=== PATIENT | female | born 1980 | race Caucasian/White ===

== ENCOUNTER 2017-11-05 15:44 | Emergency (ER) | payer OTHER ==
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
[2017-11-05] MEDS ORDERED: IBUPROFEN 600 MG TABLET PO STA (20:19)
[2017-11-05] MEDS ORDERED: ACETAMINOPHEN 325 MG TABLET PO STA (20:19)
[2017-11-05] MEDS: METHOCARBAMOL 500 MG TABLET PO STA ×2 (20:28→21:20)
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
[2017-11-05 21:00] VITALS: BP 162/102
== END 2017-11-05 21:20 | disposition home or self-care (01) ==
LOC: ED 15:44
DX: S46.812A Strain of other muscles, fascia and tendons at shoulder and upper arm level, left arm, initial encounter (principal); V43.52XA Car driver injured in collision with other type car in traffic accident, initial encounter; Y92.488 Other paved roadways as the place of occurrence of the external cause
CPT/HCPCS: 73030; 99283; A9270

== ENCOUNTER 2018-08-02 08:58 | Emergency (ER) | payer OTHER ==
[2018-08-02 09:14] VITALS: BP 123/78
[2018-08-02] MEDS ORDERED: KETOROLAC 60 MG/2 ML VIAL IM STA (09:44)
--- NOTE | 2018-08-02 09:45 | ED Physician Documentation ---
History of Present Illness - Stated complaint Stated Complaint: R SHOULDER PAIN - Chief complaint Chief Complaint: Ext Problem - History obtained from History obtained from: Patient - History of Present Illness Timing: How many days ago (4) Pain level max: 7 Pain level now: 5 Improved by: rest Worsened by: movement - Additonal information Additional information: 38-year-old female with right shoulder pain for the past 4 days. Does not recall any injury, but did start working out about a month ago. She took Motrin yesterday and Tylenol today without relief. She is left-handed. No numbness or tingling. Review of Systems Constitutional: denies: Fever GI: denies: Vomiting, Diarrhea Skin: denies: Rash Musculoskeletal: denies: Neck pain, Back pain Neurologic: denies: Focal weakness, Numbness, Headache PD PAST MEDICAL HISTORY - Past Medical History Past Medical History: Yes Musculoskeletal: None Other Past Medical History: celiac disease. 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 - Present Medications Home Medications: Ambulatory Orders Medication Instructions Recorded Confirmed Cyclobenzaprine [Flexeril] 10 mg PO TID PRN #20 tablet 08/02/18 Krill/[place]-3/Dha/Epa/Lipids 08/02/18 [Krill Oil 350 mg Softgel] Lisinopril 20 mg PO DAILY 08/02/18 08/02/18 Meloxicam [Mobic] 15 mg PO DAILY PRN #20 tablet 08/02/18 Multivitamin [Multiple Vitamins] 1 each PO 08/02/18 - Allergies Allergies/Adverse Reactions: Allergies Allergy/AdvReac Type Severity Reaction Status Date / Time Penicillins Allergy Unknown Verified 08/02/18 09:07 gluten AdvReac Unknown Verified 08/02/18 09:07 - Social History Does the pt smoke?: No Smoking Status: Current every day smoker Does the pt drink ETOH?: No Does the pt have substance abuse?: No - Immunizations Immunizations are current?: Yes - POLST Patient has POLST: No PD ED PE NORMAL - Vitals Vital signs reviewed: Yes - General General: Alert and oriented X 3, No acute distress - HEENT HEENT: Moist mucous membranes - Neck Neck: Supple, no meningeal sign - Cardiac Cardiac: RRR, Strong equal pulses - Respiratory Respiratory: No respiratory distress, Clear bilaterally - Derm Derm: Warm and dry - Extremities Extremities: Other (Right upper extremity - Mild pain with passive range of motion of the right shoulder. There does seem to be increased pain with internal and external rotation. Also increased pain with active range of motion. No gross deformity. Neurovascular intact including the axillary nerve.) - Neuro Neuro: Alert and oriented X 3 Results - Vitals Vitals: Vital Signs - 24 hr 08/02/18 09:03 Temperature 36.8 C Heart Rate 60 Respiratory 14 Rate Blood Pressure 123/78 O2 Saturation 99 Oxygen O2 Source Room air - Rads (name of study) R shoulder xray Radiology: Prelim report reviewed, EMP read contemporaneously, See rad report (Normal shoulder radiography. ) PD MEDICAL DECISION MAKING - ED course Complexity details: reviewed results, re-evaluated patient, considered differential, d/w patient ED course: 38-year-old female presents to the emergency department with right shoulder pain. Unclear etiology. Possible related to carrying her child? She is left- handed. No acute findings on x-ray. Will place on anti-inflammatories as well as muscle relaxants for home. Declines a sling at this time. Patient counseled regarding signs and symptoms for which I believe and urgent re-evaluation would be necessary. Patient with good understanding of and agreement to plan and is comfortable going home at this time This document was made in part using voice recognition software. While efforts are made to proofread this document, sound alike and grammatical errors may occur. Departure - Departure Disposition: 01 Home, Self Care Clinical Impression: Right shoulder strain Qualifiers: Encounter type: initial encounter Qualified Code(s): S46.911A - Strain of unspecified muscle, fascia and tendon at shoulder and upper arm level, right arm, initial encounter Condition: Good Instructions: ED Sprain Shoulder Follow-Up: your,doctor in 1 week [Other] Prescriptions: Cyclobenzaprine [Flexeril] 10 mg PO TID PRN #20 tablet PRN Reason: Spasms Meloxicam [Mobic] 15 mg PO DAILY PRN #20 tablet PRN Reason: pain Comments: Use the medication as prescribed. Return if you worsen. This should improve over the next few days. Do not drive or operate heavy machinery while taking the Flexeril. Discharge Date/Time: 08/02/18 11:31
--- NOTE | 2018-08-02 11:20 | XRAY Report ---
Reason: R shoulder pain x 4 days Procedure Date: 08/02/2018 Accession Number: [id number] / [id number] Procedure: XR - Shoulder 3 View RT CPT Code: FULL RESULT: EXAM: RIGHT SHOULDER RADIOGRAPHY EXAM DATE: 08/02/2018 10:26 AM. CLINICAL HISTORY: R shoulder pain x 4 days. COMPARISON: None. TECHNIQUE: 3 views. FINDINGS: Bones: Normal. No fracture or bone lesion. Joints: The glenohumeral and acromioclavicular joints are normal. Soft tissues: The visualized hemithorax is unremarkable. No soft tissue swelling. IMPRESSION: Normal shoulder radiography. RADIA
== END 2018-08-02 11:31 | disposition home or self-care (01) ==
LOC: ED 08:58
DX: S46.911A Strain of unspecified muscle, fascia and tendon at shoulder and upper arm level, right arm, initial encounter (principal); X50.9XXA Other and unspecified overexertion or strenuous movements or postures, initial encounter; Y93.A9 Activity, other involving cardiorespiratory exercise; F17.200 Nicotine dependence, unspecified, uncomplicated
CPT/HCPCS: 96372; 99283

== ENCOUNTER 2018-08-25 18:56 | Emergency (ER) | payer OTHER ==
[2018-08-25] MEDS ORDERED: SODIUM CHLORIDE 0.9% 1,000 ML IV ONE (19:09)
[2018-08-25] MEDS ORDERED: LISINOPRIL 5 MG TABLET PO STA (19:09)
--- NOTE | 2018-08-25 19:10 | ED Physician Documentation ---
PD HPI FOCAL NEURO - Stated complaint Stated Complaint: DIZZY - Chief complaint Chief Complaint: Neuro - History obtained from History obtained from: Patient - History of Present Illness Timing - onset: Today (38-year-old woman with history of hypertension presents with dizziness that she describes as a combination of lightheadedness and spinning that started this morning. It is sometimes worse when she turns her head to the right. She is concerned because her blood pressure was high today and she takes her lisinopril, 20 mg in the morning and she is not sure if she took that or an extra dose of meloxicam which she has had for ongoing right sided neck pain. There is no headache, but she does have chronic neck and right-sided shoulder pain. That is not new. There is no visual deficit, no d iplopia. 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 Home Medications: Ambulatory Orders Medication Instructions Recorded Confirmed Cyclobenzaprine [Flexeril] 10 mg PO TID PRN #20 tablet 08/02/18 Krill/[place]-3/Dha/Epa/Lipids 08/02/18 [Krill Oil 350 mg Softgel] Meloxicam [Mobic] 15 mg PO DAILY PRN #20 tablet 08/02/18 Multivitamin [Multiple Vitamins] 1 each PO 08/02/18 RX: Lisinopril 20 mg PO DAILY 08/02/18 08/02/18 RX: Ciprofloxacin [Cipro] 250 mg PO Q12H #10 tablet 08/25/18 - Allergies Allergies/Adverse Reactions: Allergies Allergy/AdvReac Type Severity Reaction Status Date / Time Penicillins Allergy Unknown Verified 08/02/18 09:07 gluten AdvReac Unknown Verified 08/02/18 09:07 - Social History Does the pt smoke?: No Smoking Status: Current every day smoker Does the pt drink ETOH?: No Does the pt have substance abuse?: No - Immunizations Immunizations are current?: Yes - POLST Patient has POLST: No PD ED PE NORMAL - Vitals Vital signs reviewed: Yes - General General: Alert and oriented X 3, No acute distress - HEENT HEENT: PERRL, EOMI, Other (No nystagmus,) - Neck Neck: Supple, no meningeal sign, No bony TTP - Cardiac Cardiac: RRR, No murmur - Respiratory Respiratory: No respiratory distress, Clear bilaterally - Abdomen Abdomen: Non tender - Neuro Neuro: Alert and oriented X 3, 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, Other (Normal [id number] and [id number] testing) Eye Opening: Spontaneous Motor: Obeys Commands Verbal: Oriented GCS Score: 15 - Psych Psych: Normal mood, Normal affect NIHSS - Time Time: 17:30 - Level of Consciousness Level of consciousness: (0) Alert, Keenly responsive LOC Questions: (0) Answers both Q's correct LOC Commands: (0) Performs both correctly - Gaze Best Gaze: (0) Normal - Visual Visual: (0) No loss - Facial Palsy Facial Palsy: (0) Normal, symmetrical movement - Motor Arms (both separate) Motor Arm (right): (0) No drift Motor Arm (left): (0) No drift - Motor Legs (both separate) Motor Leg (right): (0) No drift Motor Leg (left): (0) No drift - Limb Ataxia Limb Ataxia: (0) Absent - Sensory Sensory: (0) Normal - Best Language Best Language: (0) No aphasia - Dysarthria Dysarthria: (0) Normal - Extinction and Inattention (formally neg Extinction and inattention: (0) No abnormality - Total Score/Results Total Score/Result: 0 Results - Vitals Vitals: Vital Signs - 24 hr 08/25/18 08/25/18 08/25/18 19:00 19:31 20:50 Temperature 36.0 C L 36.6 C Heart Rate 95 59 L 55 L Respiratory 18 16 16 Rate Blood Pressure 137/99 H 136/89 H 117/85 H O2 Saturation 98 99 100 Oxygen O2 Source Room air - Labs Labs: Laboratory Tests 08/25/18 08/25/18 08/25/18 19:15 19:15 20:11 WBC 9.4 RBC 4.48 Hgb 13.7 Hct 40.9 MCV 91.4 MCH 30.7 MCHC 33.6 RDW 13.0 Plt Count 336 MPV 8.1 Neut # (Auto) 5.9 Lymph # (Auto) 2.3 [place] # (Auto) 0.7 Eos # (Auto) 0.5 Baso # (Auto) 0.1 Absolute Nucleated RBC 0.01 Nucleated RBC % 0.1 Sodium 137 Potassium 3.6 Chloride 102 Carbon Dioxide 24 Anion Gap 11.0 BUN 13 Creatinine 1.0 Estimated GFR (MDRD) 63 L Glucose 104 H Calcium 9.1 Total Bilirubin 0.3 AST 17 ALT 13 Alkaline Phosphatase 54 Total Protein 7.3 Albumin 4.4 Globulin 2.9 Albumin/Globulin Ratio 1.5 Lipase 45 Urine Color YELLOW Urine Clarity CLEAR Urine pH 6.0 Ur Specific [place] <=1.005 Urine Protein NEGATIVE Urine Glucose (UA) NEGATIVE Urine Ketones NEGATIVE Urine Occult Blood NEGATIVE Urine Nitrite POSITIVE H Urine Bilirubin NEGATIVE Urine Urobilinogen 0.2 (NORMAL) Ur Leukocyte Esterase NEGATIVE Urine RBC None Seen Urine WBC 0-3 Ur Squamous Epith Cells MOD Squamous H Urine Bacteria Many H Ur Microscopic Review INDICATED Urine Culture Comments NOT INDICATED Urine HCG, Qual NEGATIVE PD MEDICAL DECISION MAKING - ED course ED course: 38-year-old woman presents with dizziness that seems like a combination of vertigo and lightheadedness. She felt somewhat better after IV fluids, she was most worried about her blood pressure which was about 140/90 on arrival. She was not sure whether she took her lisinopril or not this morning and she was gi maldonado half her normal dose with resolution of her blood pressure to normal levels. Her work-up was otherwise negative with normal neurologic examination and negative blood work but she does have evidence of UTI with positive nitrite. She says she frequently has UTIs and does not really get symptomatic with them because of how frequently she has them and this is treated with Cipro pending culture. She cannot take sulfa because she is on lisinopril. Departure - Departure Disposition: 01 Home, Self Care Clinical Impression: Dizziness, UTI (urinary tract infection) Condition: Good Record reviewed to determine appropriate education?: Yes Instructions: ED Dizziness UKO, ED UTI Cystitis Female Prescriptions: RX: Ciprofloxacin [Cipro] 250 mg PO Q12H #10 tablet Comments: We will culture your urine, the results should be done in 48-72 hours. If an antibiotic change is necessary we will call you. Return if worse in the meantime, especially if you develop increasing flank pain, fevers, or cannot keep down the medication. Call your doctor to arrange a follow-up appointment, make the next available appointment. In the interim, return anytime if worse or if new symptoms develop. Discharge Date/Time: 08/25/18 20:58
[2018-08-25 19:23] LABS: BASOPHILS # (AUTO) 0.1 10^3/uL (0.0-0.1); BASOPHILS % (AUTO) 1.3 %; EOSINOPHILS # (AUTO) 0.5 10^3/uL (0.0-0.7); HGB - HEMOGLOBIN 13.7 g/dL (12.0-16.0); LYMPHOCYTES # (AUTO) 2.3 10^3/uL (1.5-3.5); MEAN CORPUSCULAR HEMOGLOBIN 30.7 pg (27.0-31.0); MEAN CORPUSCULAR HGB CONC 33.6 g/dL (32.0-36.0); MEAN CORPUSCULAR VOLUME 91.4 fL (81.0-99.0); MEAN PLATELET VOLUME 8.1 fL (7.9-10.8); MONOCYTES # (AUTO) 0.7 10^3/uL (0.0-1.0); MONOCYTES % (AUTO) 7.1 %; NEUTROPHILS # (AUTO) 5.9 10^3/uL (1.5-6.6); NEUTROPHILS % (AUTO) 62.6 %; PLT - PLATELET COUNT 336 10^3/uL (130-450); RED BLOOD COUNT 4.48 10^6/uL (4.20-5.40); WHITE BLOOD COUNT 9.4 x10^3/uL (4.8-10.8)
[2018-08-25 19:32] LABS: ALBUMIN 4.4 g/dL (3.2-5.5); ALBUMIN/GLOBULIN RATIO 1.5 (1.0-2.2); BILIRUBIN,TOTAL 0.3 mg/dL (0.2-1.0); CALCIUM 9.1 mg/dL (8.5-10.3); TOTAL PROTEIN 7.3 g/dL (6.7-8.2)
[2018-08-25 20:28] LABS: BILIRUBIN,URINE NEGATIVE (NEGATIVE); GLUCOSE, URINE (UA) NEGATIVE (NEGATIVE); KETONES,URINE (UA) NEGATIVE (NEGATIVE); LEUKOCYTE ESTERASE, URINE NEGATIVE (NEGATIVE); NITRITE,URINE POSITIVE (NEGATIVE); OCCULT BLOOD,URINE NEGATIVE (NEGATIVE); PROTEIN,URINE NEGATIVE (NEGATIVE); UROBILINOGEN,URINE 0.2 (NORMAL) E.U./dL (NORMAL)
[2018-08-25 20:31] LABS: CLARITY,URINE CLEAR (CLEAR); HCG UR QUAL NEGATIVE
[2018-08-25] MEDS ORDERED: CIPROFLOXACIN 250 MG TABLET PO STA (20:42)
[2018-08-25 20:45] LABS: RBC,URINE None Seen /HPF (0-5)
[2018-08-25 20:46] LABS: BACTERIA,URINE Many /HPF (None Seen); SQUAMOUS EPITHELIAL CELL,UR MOD Squamous (<= Few)
[2018-08-25 20:51] VITALS: BP 117/85
== END 2018-08-25 20:58 | disposition home or self-care (01) ==
LOC: ED 18:56
DX: R42 Dizziness and giddiness (principal); N39.0 Urinary tract infection, site not specified; F17.200 Nicotine dependence, unspecified, uncomplicated
CPT/HCPCS: 36415; 80053; 81001; 81025; 83690; 85025; 87086; 96360; 99283; A9270; 81003; 87181

== ENCOUNTER 2018-08-28 09:00 | Emergency (ER) | payer OTHER ==
--- NOTE | 2018-08-28 10:33 | ED Physician Documentation ---
PD HPI OPHTHO - Stated complaint Stated Complaint: RT EYE IRRITATION - Chief complaint Chief Complaint: Heent - History obtained from History obtained from: Patient - History of Present Illness Timing - onset: Today Timing - duration: Hours (awoke this mornign with feeling of right eyelid drooping and vision blurry. Not having symptoms of whole face.) Timing - details: Abrupt onset, Still present Location: Right Associated symptoms: Decreased vision. No: Redness, Double vision, Loss of vision Contributing factors: No: Recent URI Similar symptoms before: Has not had sx before Recently seen: Emergency Dept (had feeling of dizziness few days ago, worse with head movement. Some right sided headache. No focal weakness nor numbness.) Review of Systems Constitutional: denies: Fever, Chills Eyes: reports: Decreased vision (feeling blurred right eye at times). denies: Loss of vision Ears: reports: Other (intermittent dizziness with head movement.). denies: Loss of hearing, Ear pain Nose: reports: Sinus pressure / pain. 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 - Present Medications Home Medications: Ambulatory Orders Medication Instructions Recorded Confirmed Krill/[place]-3/Dha/Epa/Lipids 08/02/18 [Krill Oil 350 mg Softgel] Lisinopril 20 mg PO DAILY 08/02/18 08/02/18 Meloxicam [Mobic] 15 mg PO DAILY PRN #20 tablet 08/02/18 Multivitamin [Multiple Vitamins] 1 each PO 08/02/18 Ciprofloxacin [Cipro] 250 mg PO Q12H #10 tablet 08/25/18 Cetirizine [ZyrTEC] 10 mg PO DAILY #15 tablet 08/28/18 Dexamethasone [Decadron] 4 mg PO DAILY #5 tablet 08/28/18 - Allergies Allergies/Adverse Reactions: Allergies Allergy/AdvReac Type Severity Reaction Status Date / Time Penicillins Allergy Unknown Verified 08/28/18 09:11 gluten AdvReac Unknown Verified 08/28/18 09:11 - Social History Does the pt smoke?: No Smoking Status: Never smoker Does the pt drink ETOH?: No Does the pt have substance abuse?: No - Immunizations Immunizations are current?: Yes - POLST Patient has POLST: No PD ED PE NORMAL - Vitals Vital signs reviewed: Yes - General General: Alert and oriented X 3, No acute distress (not in pain, but is tearful/anxious about not feeling well. ), Well developed/nourished - HEENT HEENT: PERRL (mild puffiness noted right upper lid. No ptosis per se. 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, No motor deficit, No sensory deficit, Normal speech Results - Vitals Vitals: Vital Signs - 24 hr 08/28/18 08/28/18 09:09 13:38 Temperature 37.1 C 36.7 C Heart Rate 70 60 Respiratory 20 18 Rate Blood Pressure 127/93 H 132/92 H O2 Saturation 97 98 Oxygen O2 Source Room air - Rads (name of study) head CT Radiology: Prelim report reviewed (normal), See rad report PD MEDICAL DECISION MAKING - ED course Complexity details: reviewed results, considered differential (given dizziness recently, and now feeling of right eyelid droopy (though it looks like some mild swelling of eyelid without redness and not drooping per se), decided on CT with discussion with patient. Has some sinus pressure feeling, so dizzy and some periorbital swelling (lid) may related to sinus congestion. ), d/w patient Departure - Departure Disposition: 01 Home, Self Care Clinical Impression: Sinus pressure Swelling of eyelid Qualifiers: Laterality: right Qualified Code(s): H02.843 - Edema of right eye, unspecified eyelid Condition: Stable Record reviewed to determine appropriate education?: Yes Instructions: ED Sinusitis No Abx Follow-Up: FATOU KIMBALL [Primary Care Provider] - Prescriptions: Cetirizine [ZyrTEC] 10 mg PO DAILY #15 tablet Dexamethasone [Decadron] 4 mg PO DAILY #5 tablet Comments: Your CT scan of the head appears normal. No signs of tumor swelling or other acute problem. I think your eyelid swelling as well as the dizziness you have been having likely relate to some inflammation around the sinus. I have you take cetirizine antihistamine daily for the next week or 2 and also Decadron steroid for inflammation daily for the next 5 days. It does not seem like an infection per se so I do not think antibiotics will help. Recheck if not improved over the next few days. Discharge Date/Time: 08/28/18 13:39
[2018-08-28] MEDS ORDERED: CHERRY SYRUP 10 ML UDC PO ONE (11:31)
[2018-08-28] MEDS ORDERED: DEXAMETHASONE 10 MG/ML VIAL PO STA (11:31)
--- NOTE | 2018-08-28 12:25 | CT Report ---
Reason: right headache, feels eyelid is droopy Procedure Date: 08/28/2018 Accession Number: [id number] / [id number] Procedure: CT - HEAD WO CPT Code: FULL RESULT: EXAM: CT HEAD EXAM DATE: 08/28/2018 12:12 PM. CLINICAL HISTORY: Right headache, feels eyelid is droopy. COMPARISON: None. TECHNIQUE: Multiaxial CT images were obtained from the foramen magnum to the vertex. Reformats: Sagittal and coronal. IV contrast: None. In accordance with CT protocol optimization, one or more of the following dose reduction techniques were utilized for this exam: automated exposure control, adjustment of mA and/or KV based on patient size, or use of iterative reconstructive technique. FINDINGS: Parenchyma: No intraparenchymal hemorrhage. No evidence of mass, midline shift, or CT findings of infarction. Dobbins-white differentiation is distinct. Extraaxial Spaces: Normal for age. No subdural or epidural collections identified. Ventricles: Normal in size and position. Sinuses and Orbits: Imaged paranasal sinuses, orbits, and mastoids show no significant abnormality. Bones: No evidence of fracture or calvarial defect. Other: None. IMPRESSION: Normal head CT. RADIA
[2018-08-28 13:38] VITALS: BP 132/92
== END 2018-08-28 13:39 | disposition home or self-care (01) ==
LOC: ED 09:00
DX: J34.89 Other specified disorders of nose and nasal sinuses (principal); H02.843 Edema of right eye, unspecified eyelid; I10 Essential (primary) hypertension
CPT/HCPCS: 70450; 99283

== ENCOUNTER 2019-01-27 09:15 | Outpatient (CLI) | payer OTHER | END 2019-01-27 09:16 | disposition home or self-care (01) | LOC: LAB 09:15 | PROVIDERS: ATTEND Plastic Surgery | DX: N62 Hypertrophy of breast (principal); M54.6 Pain in thoracic spine; G89.29 Other chronic pain | CPT/HCPCS: 80323; 81599 ==

== ENCOUNTER 2019-02-05 12:34 | Emergency (ER) | payer OTHER ==
[2019-02-05] MEDS ORDERED: KETOROLAC 60 MG/2 ML VIAL IM STA (13:10)
[2019-02-05] MEDS ORDERED: HYDROmorphone 1 MG/ML CARPUJECT IM STA (13:10)
--- NOTE | 2019-02-05 13:11 | ED Physician Documentation ---
PD HPI BACK PAIN - Stated complaint Stated Complaint: BACK PX - Chief complaint Chief Complaint: Back Pain - History obtained from History obtained from: Patient (She was doing some light work around the house a few hours ago. She twisted and felt sudden severe back pain that is much worse with twisting or bending. She has no incontinence, saddle anesthesia, fevers, weakness, numbness, or tingling in the legs. 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 - Present Medications Home Medications: Ambulatory Orders Medication Instructions Recorded Confirmed Lisinopril 20 mg PO DAILY 08/02/18 08/02/18 Cyclobenzaprine [Flexeril] 10 mg PO TID PRN #20 tablet 02/05/19 Hydrocodone/Acetaminophen 1 - 2 each PO Q6H PRN #14 tablet 02/05/19 [Hydrocodon-Acetaminophen 5-325] Ibuprofen [Motrin] 800 mg PO Q8H PRN #30 tablet 02/05/19 Ondansetron Odt [Zofran] 4 mg TL Q6H PRN #10 tablet 02/05/19 - Allergies Allergies/Adverse Reactions: Allergies Allergy/AdvReac Type Severity Reaction Status Date / Time Penicillins Allergy Unknown Verified 02/05/19 12:39 gluten AdvReac Unknown Verified 02/05/19 12:39 - Social History Does the pt smoke?: No Smoking Status: Never smoker Does the pt drink ETOH?: No Does the pt have substance abuse?: No - Immunizations Immunizations are current?: Yes - POLST Patient has POLST: No PD ED PE NORMAL - Vitals Vital signs reviewed: Yes - General General: Alert and oriented X 3, No acute distress - Cardiac Cardiac: RRR, No murmur - Respiratory Respiratory: No respiratory distress, Clear bilaterally - Abdomen Abdomen: Soft, Non tender - Back Back: Other (There is no midline spinal tenderness. She does have tenderness of the low parathoracic muscles on either side. She is comfortable at rest but winces with motion. The patient has equal and normal Achilles and patellar reflexes bilaterally. Normal sensation in all areas of the legs. Patient denies saddle anesthesia. Normal strength in flexion-extension at the ankles, knees, and flexion of the hips.) - Extremities Extremities: No edema, No calf tenderness / cord - Neuro Neuro: Alert and oriented X 3, Normal speech Results - Vitals Vitals: Vital Signs - 24 hr 02/05/19 12:39 Temperature 36.7 C Heart Rate 66 Respiratory 16 Rate Blood Pressure 139/72 H O2 Saturation 100 Oxygen O2 Source Room air PD MEDICAL DECISION MAKING - ED course ED course: This patient has seemingly uncomplicated musculoskeletal back pain. The patient has no "red flags." Specifically denies IV drug use, fevers, incontinence, saddle anesthesia. Spinal epidural abscess was considered, given that the patient has no fever, is not diabetic, has no spinal tenderness, does not use IV drugs, and has no bilateral neurologic symptoms, the diagnosis of spinal epidural abscess is considered exceedingly unlikely. It does seem like an obvious spasm and she is administered IM Toradol and Dilaudid. This was followed by 1mg IM Ativan with return of functionality. Departure - Departure Disposition: 01 Home, Self Care Clinical Impression: Back spasm Condition: Good Record reviewed to determine appropriate education?: Yes Instructions: ED Spasm Back No Trauma Prescriptions: Cyclobenzaprine [Flexeril] 10 mg PO TID PRN #20 tablet PRN Reason: Spasms Hydrocodone/Acetaminophen [Hydrocodon-Acetaminophen 5-325] 1 - 2 each PO Q6H PRN #14 tablet PRN Reason: pain Ibuprofen [Motrin] 800 mg PO Q8H PRN #30 tablet PRN Reason: PAIN &/OR FEVER Ondansetron Odt [Zofran] 4 mg TL Q6H PRN #10 tablet PRN Reason: Nausea / Vomiting Comments: Call your doctor to arrange a follow-up appointment, make the next available appointment. In the interim, return anytime if worse or if new symptoms develop. Do not drink or drive while taking narcotic pain medication. Note that many narcotic pain relievers also contain Tylenol/acetaminophen. Please ensure that your total dose of acetaminophen from all sources does not exceed 3 g (3000 mg) per day. You may get constipated while on this medication. Take a stool softener such as Colace twice a day while you are on it. Also add an [id number] laxative such as senna or MiraLAX on any day that you do not have a bowel movement. If you received a narcotic pain medication or sedative while in the emergency department, do not drive for the next 24 hours.
[2019-02-05] MEDS ORDERED: ONDANSETRON ODT 4 MG TABLET TL STA (13:43)
[2019-02-05] MEDS ORDERED: LORazepam 2 MG/ML VIAL IM STA (13:43)
[2019-02-05 14:53] VITALS: BP 106/64
== END 2019-02-05 14:43 | disposition home or self-care (01) ==
LOC: ED 12:34
DX: M62.830 Muscle spasm of back (principal); I10 Essential (primary) hypertension
CPT/HCPCS: 96372; 99284; J1170; J2060; Q0162

== ENCOUNTER 2020-01-20 09:47 | Outpatient (CLI) | payer OTHER ==
--- NOTE | 2020-01-20 14:03 | MRI Report ---
PROCEDURE: Knee RT W/O INDICATIONS: RT KNEE PAIN TECHNIQUE: Noncontrast sagittal PD fast spin echo and T2 fast spin echo with fat saturation, sagittal 3-D gradie nt sequence with fat saturation; coronal T1 spin echo and PD fast spin echo with fat saturation, and axial PD fast spin echo with fat saturation through the knee. COMPARISON: None. FINDINGS: Image quality: Excellent. Menisci: The medial and lateral menisci demonstrate normal morphology and internal signal. The meni scal root ligaments appear intact. Cruciate ligaments: The anterior and posterior cruciate ligaments appear intact. Medial structures: The medial collateral ligament appears intact. Visualized portions of the pes a nserinus tendons appear normal. No abnormal bursal fluid. Lateral structures: The lateral collateral ligament, long and short heads of the biceps femoris tend on appear intact. The popliteus tendon appears normal; the popliteofibular ligament appears intact. The posterosuperior and anteroinferior popliteomeniscal fascicles appear intact. The arcuate and fa bellofibular ligaments appear intact, around the lateral inferior geniculate artery. Iliotibial band appears normal. Anterior structures: The quadriceps and patellar tendons appear intact. Mild superolateral patellar subluxation. No femoral trochlear dysplasia or ventral trochlear prominence. Mild edema in the supero lateral aspect of the infrapatellar fat pad. Bones and cartilage: No bone marrow contusions or fractures. Red marrow reconversion within the dist al femur. Mild articular cartilage loss diffusely overlies the weightbearing aspects of the medial fe moral condyle and medial tibial plateau. Joint space: There is physiologic knee joint fluid. Small Pedersen?s cyst. Normal appearing synovial p licae are incidentally noted. IMPRESSION: 1. No internal derangement. 2. Findings consistent with mild/early lateral patellofemoral friction syndrome in the appropriate cl inical setting. 3. Red marrow reconversion, which may indicate tobacco use. Clinical correlation recommended. Reviewed by: Javier Bhatti MD on 01/20/2020 2:01 PM PDT Approved by: Javier Bhatti MD on 01/20/2020 2:01 PM PDT Station ID: [id number]
== END 2020-01-20 09:48 | disposition home or self-care (01) ==
LOC: DI 09:47
PROVIDERS: ATTEND Nurse Practitioner Family
DX: M25.561 Pain in right knee (principal)

== ENCOUNTER 2020-11-19 12:34 | Outpatient (CLI) | payer OTHER ==
--- NOTE | 2020-12-03 09:18 | XRAY Report ---
PROCEDURE: SI Joints INDICATIONS: CHRONIC LOW BACK PAIN LATERALITY TECHNIQUE: 3 views of the sacroiliac joints were acquired. COMPARISON: None FINDINGS: Bones: No bony erosions or ankylosis. No suspicious bony lesions. No fractures. Soft tissues: Overlying bowel gas pattern is normal. No suspicious soft tissue densities. IMPRESSION: Normal appearance of the SI joints bilaterally. Reviewed by: AURA Arreola on 11/23/2020 9:01 AM PDT Approved by: Eduardo Lopez MD on 11/23/2020 9:01 AM PDT Station ID: [id number]
== END 2020-11-19 12:35 | disposition home or self-care (01) ==
LOC: DI 12:34
DX: L40.50 Arthropathic psoriasis, unspecified (principal); M54.5 Low back pain; G89.29 Other chronic pain

== ENCOUNTER 2022-07-08 09:56 | Emergency (ER) | payer OTHER ==
[2022-07-08 10:12] VITALS: BP 154/89
--- NOTE | 2022-07-08 11:12 | ED Physician Documentation ---
PD HPI OPHTHO - Stated complaint Stated Complaint: EYE PX/REDDNESS.SWELLING - Chief complaint Chief Complaint: Heent - History obtained from History obtained from: Patient - Additional information Additional information: Patient is a 42-year-old female with a history of arthritis, on Cosentyx, presenting for evaluation of redness and discharge to her right eye that she has noticed for 1 day. She has not had mild swelling to the right upper eyelid for the past 1 week and was diagnosed with a stye yesterday at her PCPs office. She was recommended to use warm compresses. This morning she woke up with green discharge and Irritation to the eye.She reports having mild blurriness to her vision. She does use contacts but has not been using contacts in the past 1 week. 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 - Present Medications Home Medications: Ambulatory Orders Medication Instructions Recorded Confirmed lisinopriL [Lisinopril] 20 mg PO DAILY 08/02/18 08/02/18 Cyclobenzaprine [Flexeril] 10 mg PO TID PRN #20 tablet 02/05/19 Hydrocodone/Acetaminophen 1 - 2 each PO Q6H PRN #14 tablet 02/05/19 [Hydrocodon-Acetaminophen 5-325] Ibuprofen [Motrin] 800 mg PO Q8H PRN #30 tablet 02/05/19 Ondansetron Odt [Zofran] 4 mg TL Q6H PRN #10 tablet 02/05/19 Ofloxacin 0.3% Ophth Drops 2 drops RIGHTEYE Q4H 7 Days #5 ml 07/08/22 [Ocuflox 0.3% Ophth Drops] - Allergies Allergies/Adverse Reactions: Allergies Allergy/AdvReac Type Severity Reaction Status Date / Time Penicillins Allergy Unknown Verified 07/08/22 10:12 gluten AdvReac Unknown Verified 07/08/22 10:12 - Social History Does the pt smoke?: No Smoking Status: Never smoker Does the pt drink ETOH?: No Does the pt have substance abuse?: No - Immunizations Immunizations are current?: Yes - POLST Patient has POLST: No PD ED PE NORMAL - General General: Alert and oriented X 3, No acute distress, Well developed/nourished - HEENT HEENT: Atraumatic, PERRL, EOMI (No pain with extraocular eye movements), Moist mucous membranes, Pharynx benign - Neck Neck: Supple, no meningeal sign - Respiratory Respiratory: No respiratory distress - Derm Derm: Warm and dry, No rash - Extremities Extremities: No edema PD ED PE EXPANDED - Eyes Eyes: PERRL, EOMI, Eyelid swelling (Right upper eyelid stye), Injected conj/sclera, Normal corneas, Other (Right upper eyelid stye; Globes are soft). No: Eyelid erythema, Corneal abrasion, Corneal ulcer, Fluorescein uptake Results - Vitals Vitals: Vital Signs - 24 hr 07/08/22 10:08 Temperature 36.7 C Heart Rate 63 Respiratory 16 Rate Blood Pressure 154/89 H O2 Saturation 98 Oxygen O2 Source Room air PD Medical Decision Making - ED course ED course: Patient presenting for evaluation of abnormal discharge to her right eye and irritation. She does have a stye to the upper eyelid. Her visual acuity is intact and there is no evidence of Increased IOP. No pain with extraocular eye movements to suggest an abscess or postseptal cellulitis.Does appear to have conjunctivitis on exam. We will start her on an antibiotic as she does also wear contacts. Patient counseled on treatment plan as well as need for close follow-up with PCP. She is advised on concerning symptoms to return for. Departure - Departure Disposition: 01 Home, Self Care Clinical Impression: Conjunctivitis, right eye Condition: Stable Instructions: ED Conjunctivitis Bacterial Prescriptions: Ofloxacin 0.3% Ophth Drops [Ocuflox 0.3% Ophth Drops] 2 drops RIGHTEYE Q4H 7 Days #5 ml Comments: You have an infection to your right eye called conjunctivitis. I am starting you on an antibiotic eyedrop and have sent this prescription to [facility] in [place]. Please make sure to take the antibiotic as directed. Please do not use contacts until your infection clears. Please continue with warm compresses for your stye. Please have close follow-up with your PCP. If your symptoms are worsening in any way such as increased pain, swelling, changes to your vision return to the emergency department. Discharge Date/Time: 07/08/22 11:38
== END 2022-07-08 11:38 | disposition home or self-care (01) ==
LOC: ED 09:56
DX: H10.9 Unspecified conjunctivitis (principal); I10 Essential (primary) hypertension; Z88.0 Allergy status to penicillin; Z79.899 Other long term (current) drug therapy
CPT/HCPCS: 99282; 99283

== ENCOUNTER 2023-01-27 15:18 | Emergency (ER) | payer OTHER ==
[2023-01-27 15:41] VITALS: BP 145/97; O2SAT 97
--- OUTSIDE RECORDS SUMMARY | 2023-01-27 15:47 | EXTERNAL MEDICAL SUMMARY RPT | Continuity of Care Document ---
Author Name Unknown Address [address] [place] [address] Phone Organization [facility] Address [address] [place] [address] Phone Care Team Providers Care Security Patrol Driver Name Role Phone Unavailable Unavailable Unavailable Jun [facility] Unavailable Unavailable Allergies and Intolerances date description facility reaction severity 2022-11-20 12:49:58 allergy to substance (finding) All propensity to adverse reactions (no severity) Medications date description facility 2022-11-20 00:00 adalimumab All 2022-11-21 00:00 adalimumab All 2022-11-20 00:00 fluticasone propionate All 2022-11-21 00:00 fluticasone propionate All 2022-11-20 00:00 lisinopril All 2022-11-21 00:00 lisinopril All 2022-11-20 00:00 amoxicillin-pot clavulanate All 2022-11-20 00:00 amoxicillin-pot clavulanate All 2023-01-09 00:00 cetirizine hcl 10 mg oral table t [facility] - [facility] Med, Adult [facility] 2022-11-20 00:00 cetirizine All 2022-11-21 00:00 cetirizine All 2022-11-20 00:00 multivitamin All 2022-11-21 00:00 multivitamin All 2022-11-20 00:00 cetirizine All 2022-11-21 00:00 cetirizine All 2022-11-20 00:00 multivitamin All 2022-11-21 00:00 multivitamin All 2022-11-20 00:00 fluticasone propionate All 2022-11-21 00:00 fluticasone propionate All 2022-11-20 00:00 fluticasone propionate All 2022-11-21 00:00 fluticasone propionate All 2023-01-09 00:00 0.4 ml humira 100 mg /ml auto-injector [facility] - Int Med, Adult PC and Rheum 2022-11-20 00:00 adalimumab All 2022-11-21 00:00 adalimumab All 2022-11-20 00:00 sulfasalazine All 2022-11-21 00:00 sulfasalazine All 2022-11-20 00:00 adalimumab All 2022-11-21 00:00 adalimumab All 2022-11-20 00:00 sulfasalazine All 2022-11-21 00:00 sulfasalazine All 2022-11-20 00:00 lisinopril All 2022-11-21 00:00 lisinopril All 2022-11-20 00:00 lisinopril All 2022-11-21 00:00 lisinopril All 2023-01-09 00:00 lisinopril 10 mg oral tablet [facility] - Int Med, Adult PC and Rheum 2022-11-20 00:00 lisinopril All 2022-11-21 00:00 lisinopril All 2023-01-09 00:00 Drug or medicament (substance) [facility] - Int Med, Adult PC and Rheum 2022-11-20 00:00 cetirizine All 2022-11-21 00:00 cetirizine All 2022-11-20 00:00 fluticasone propionate All 2022-11-21 00:00 fluticasone propionate All 2022-11-20 00:00 guaifenesin All 2022-11-21 00:00 guaifenesin All 2022-11-20 00:00 cetirizine All 2022-11-21 00:00 cetirizine All 2022-11-20 00:00 sulfasalazine All 2022-11-21 00:00 sulfasalazine All 2022-11-20 00:00 amoxicillin-pot clavulanate All 2022-11-20 00:00 sulfasalazine All 2022-11-21 00:00 sulfasalazine All 2022-11-20 00:00 guaifenesin All 2022-11-21 00:00 guaifenesin All 2022-11-20 00:00 adalimumab All 2022-11-21 00:00 adalimumab All 2022-11-20 00:00 amoxicillin-pot clavulanate All 2022-11-20 00:00 multivitamin All 2022-11-21 00:00 multivitamin All 2022-11-20 00:00 guaifenesin All 2022-11-21 00:00 guaifenesin All 2022-11-20 00:00 guaifenesin All 2022-11-21 00:00 guaifenesin All 2022-11-20 00:00 sour beasley extract All 2022-11-21 00:00 sour beasley extract All Problems date description facility 2022-11-20 00:00 Acute otitis media All 2022-11-20 00:00 Unspecified otitis media All 2022-11-20 00:00 Otitis media, unspecified, righ t ear All Procedures date description facility 2022-11-20 00:00 Visit Code Hold All Social History date description facility 2022-11-20 00:00 Unknown if ever smoked All 2022-11-21 00:00 Unknown if ever smoked All Vital Signs date measurement value units 2022-11-20 00:00 BMI 37.19 kg/m2 2022-11-20 00:00 BP_diastolic 87 mmHg 2022-11-20 00:00 BP_systolic 128 mmHg 2022-11-20 00:00 heart_rate 64 /min 2022-11-20 00:00 height_metric 167.64 cm 2022-11-20 00:00 height_standard 66 in 2022-11-20 00:00 respiration_rate 16 /min 2022-11-20 00:00 temperature_metric 36.67 C 2022-11-20 00:00 temperature_standard 98 F 2022-11-20 00:00 weight_metric 104.14 kg 2022-11-20 00:00 weight_standard 229.6 lb 2023-01-09 00:00 BMI 36.32 kg/m2 2023-01-09 00:00 height_metric 167.6 cm 2023-01-09 00:00 height_standard 65.98 in 2023-01-09 00:00 weight_metric 102.06 kg 2023-01-09 00:00 weight_standard 225 lb
[2023-01-27] MEDS ORDERED: NIRMATRELVIR/RITONAVIR PREPACK PO STA (16:27)
--- NOTE | 2023-01-27 16:29 | ED Physician Documentation ---
History of Present Illness - Stated complaint Stated Complaint: COVID + - Chief complaint Chief Complaint: General - Additonal information Additional information: Oh I do not know what happened she is here for some chest congestion and tight ness. Her tested positive for COVID 48 hours ago and she believes her daughter was positive about 5 days ago. Patient has a history of rheumatoid arthritis on Humira. No fevers. She does have some heaviness in her chest but no chest pain. Mostly a dry cough. She presents with her daughter who is 6 years old and complaining of ear pain. 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 - Present Medications Home Medications: Ambulatory Orders Medication Instructions Recorded Confirmed lisinopriL [Lisinopril] 20 mg PO DAILY 08/02/18 08/02/18 Cyclobenzaprine [Flexeril] 10 mg PO TID PRN #20 tablet 02/05/19 Hydrocodone/Acetaminophen 1 - 2 each PO Q6H PRN #14 tablet 02/05/19 [Hydrocodon-Acetaminophen 5-325] Ibuprofen [Motrin] 800 mg PO Q8H PRN #30 tablet 02/05/19 Ondansetron Odt [Zofran] 4 mg TL Q6H PRN #10 tablet 02/05/19 Ofloxacin 0.3% Ophth Drops 2 drops RIGHTEYE Q4H 7 Days #5 ml 07/08/22 [Ocuflox 0.3% Ophth Drops] - Allergies Allergies/Adverse Reactions: Allergies Allergy/AdvReac Type Severity Reaction Status Date / Time Penicillins Allergy Unknown Verified 01/27/23 15:39 gluten AdvReac Unknown Verified 01/27/23 15:39 - Social History Does the pt smoke?: No Smoking Status: Never smoker Does the pt drink ETOH?: No Does the pt have substance abuse?: No - Immunizations Immunizations are current?: Yes - POLST Patient has POLST: No PD ED PE NORMAL - General General: Alert and oriented X 3, No acute distress - HEENT HEENT: PERRL - Neck Neck: Supple, no meningeal sign, No adenopathy - Cardiac Cardiac: RRR, No murmur - Respiratory Respiratory: No respiratory distress, Clear bilaterally - Abdomen Abdomen: Normal bowel sounds, Soft, Non tender, Non distended - Derm Derm: Normal color, Warm and dry - Extremities Extremities: No deformity - Neuro Neuro: Alert and oriented X 3 Eye Opening: Spontaneous Motor: Obeys Commands Verbal: Oriented GCS Score: 15 Results - Vitals Vitals: Vital Signs - 24 hr 01/27/23 15:33 Temperature 36.2 C L Heart Rate 96 Respiratory 16 Rate Blood Pressure 145/97 H O2 Saturation 97 Oxygen O2 Source Room air - EKG (time done) 1540 EKG releavant findings:: EKG personally interpreted by author of this note. Relevant findings are: Rate: Rate (enter#) (84) Rhythm: NSR [place]: Normal Intervals: Normal IN QRS: Normal Ischemia: Normal ST segments Compare to prior EKG: Old EKG unavailable Computer interpretation: Agree with computer PD Medical Decision Making - ED course Complexity details: d/w patient ED course: Well-appearing 42-year-old female who has a history of RA on Humira presents emergency department for chest cough congestion and tightness. Her tested positive for COVID yesterday. She tested positive this AM. She is interested in oral antiviral therapy and as such we will dispense Paxlovid here from the emergency department. Historically she is not on any statin therapy. Reports normal renal function. We discussed the usual conservative care measures as well as emergent return precautions. I did defer x-ray imaging today as given the short duration of symptoms I have low suspicion for a pneumonia. She is without fever or hypoxia tachycardia or other worrisome vital sign abnormality here Departure - Departure Disposition: 01 Home, Self Care Clinical Impression: COVID-19 Condition: Stable Record reviewed to determine appropriate education?: Yes Comments: You tested positive for COVID-19 today. You are on Humira. We are dispensing you the Paxlovid, the FDA approved oral antiviral treatment for COVID-19 infections. It is not yet clear if this medication is working adequately with the current strain of COVID-19 but with your history of immune compromise I would make the recommendation that you take it. Return to the ER if you find you have a sudden severe chest pain, severe shortness of air or any other worrisome symptoms. You should maintain quarantine for at least 1 week from onset of symptoms.
== END 2023-01-27 16:51 | disposition home or self-care (01) ==
LOC: ED 15:18
DX: U07.1 COVID-19 (principal); I10 Essential (primary) hypertension
CPT/HCPCS: 93005; 99283; J3490

== ENCOUNTER 2023-01-31 12:10 | Emergency (ER) | payer OTHER ==
[2023-01-31 12:24] VITALS: BP 180/115; O2SAT 99
== END 2023-01-31 13:38 | disposition left against medical advice (07) ==
LOC: ED 12:10
DX: Z53.21 Procedure and treatment not carried out due to patient leaving prior to being seen by health care provider (principal)
CPT/HCPCS: 93005

== ENCOUNTER 2023-07-06 19:52 | Emergency (ER) | payer OTHER ==
[2023-07-06 20:05] VITALS: BP 120/64; O2SAT 98
--- NOTE | 2023-07-06 20:21 | ED Physician Documentation ---
PD HPI UPPER EXT INJURY - Stated complaint Stated Complaint: POST OP CONDITION - Chief complaint Chief Complaint: Ext Problem - History obtained from History obtained from: Patient - Additonal information Additional information: She had a ganglion cyst removal yesterday and her dressing got wet and is here requesting a dressing change. 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 - Present Medications Home Medications: Ambulatory Orders Medication Instructions Recorded Confirmed lisinopriL [Lisinopril] 20 mg PO DAILY 08/02/18 08/02/18 Cyclobenzaprine [Flexeril] 10 mg PO TID PRN #20 tablet 02/05/19 Hydrocodone/Acetaminophen 1 - 2 each PO Q6H PRN #14 tablet 02/05/19 [Hydrocodon-Acetaminophen 5-325] Ibuprofen [Motrin] 800 mg PO Q8H PRN #30 tablet 02/05/19 Ondansetron Odt [Zofran] 4 mg TL Q6H PRN #10 tablet 02/05/19 Ofloxacin 0.3% Ophth Drops 2 drops RIGHTEYE Q4H 7 Days #5 ml 07/08/22 [Ocuflox 0.3% Ophth Drops] - Allergies Allergies/Adverse Reactions: Allergies Allergy/AdvReac Type Severity Reaction Status Date / Time Penicillins Allergy Unknown Verified 07/06/23 20:03 gluten AdvReac Unknown Verified 07/06/23 20:03 - Social History Does the pt smoke?: No Smoking Status: Never smoker Does the pt drink ETOH?: No Does the pt have substance abuse?: No - Immunizations Immunizations are current?: Yes - POLST Patient has POLST: No PD ED PE NORMAL - Vitals Vital signs reviewed: Yes - General General: Alert and oriented X 3, No acute distress - Extremities Extremities: Other (She has dressing over the right hand and wrist. It was taken down and she has a incision in the mid distal palm that is clean dry and intact.) - Neuro Neuro: Alert and oriented X 3, Normal speech Results - Vitals Vitals: Vital Signs - 24 hr 07/06/23 19:55 Temperature 36.5 C Heart Rate 71 Respiratory 16 Rate Blood Pressure 120/64 O2 Saturation 98 Oxygen O2 Source Room air PD Medical Decision Making - ED course ED course: Dressing was rewrapped similarly with Xeroform, Kerlix and an Vivek wrap. Departure - Departure Disposition: 01 Home, Self Care Clinical Impression: Dressing change or removal, surgical wound Condition: Good Record reviewed to determine appropriate education?: Yes Comments: We change the dressing today with a similar 1, keep it clean and dry. Otherwise follow the wound instructions you were given by your surgeon.
== END 2023-07-06 20:25 | disposition home or self-care (01) ==
LOC: ED 19:52
DX: Z48.01 Encounter for change or removal of surgical wound dressing (principal); Z98.890 Other specified postprocedural states; I10 Essential (primary) hypertension
CPT/HCPCS: 99281; 99282

== ENCOUNTER 2023-07-19 05:34 | Emergency (ER) | payer OTHER ==
--- NOTE | 2023-07-19 06:09 | ED Physician Documentation ---
PD HPI CHEST PAIN - Stated complaint Stated Complaint: CHEST PX - History obtained from History obtained from: Patient - Additional information Additional information: HPI from patient. Patient c/o chest pain, midline radiating to left parasternum. Onset of pain woke her from sleep at approximately 05:00 this morning. She describes the pain as "dull ache". Denies h/o similar symptoms. Mild dyspnea when symptoms first started but no longer dyspneic. The pain gradually resolved without specific intervention and she is asymptomatic by the time of this evaluation. Denies fever, denies lower extremity swelling. Review of Systems Cardiac: reports: Chest pain / pressure. denies: Palpitations, Pedal edema, Calf pain Respiratory: reports: Dyspnea (resolved) GI: reports: Reviewed and negative : denies: Now [facility] PAST MEDICAL HISTORY - Past Medical History Cardiovascular: Hypertension Respiratory: None Neuro: None Endocrine/Autoimmune: None GI: None [employer]: None : None HEENT: None Psych: None Musculoskeletal: None Derm: Other - Past Surgical History Past Surgical History: Yes Ortho: Other /[employer]: section - Present Medications Home Medications: Ambulatory Orders Medication Instructions Recorded Confirmed lisinopriL [Lisinopril] 20 mg PO DAILY 08/02/18 08/02/18 Cyclobenzaprine [Flexeril] 10 mg PO TID PRN #20 tablet 02/05/19 Hydrocodone/Acetaminophen 1 - 2 each PO Q6H PRN #14 tablet 02/05/19 [Hydrocodon-Acetaminophen 5-325] Ibuprofen [Motrin] 800 mg PO Q8H PRN #30 tablet 02/05/19 Ondansetron Odt [Zofran] 4 mg TL Q6H PRN #10 tablet 02/05/19 Ofloxacin 0.3% Ophth Drops 2 drops RIGHTEYE Q4H 7 Days #5 ml 07/08/22 [Ocuflox 0.3% Ophth Drops] - Allergies Allergies/Adverse Reactions: Allergies Allergy/AdvReac Type Severity Reaction Status Date / Time Penicillins Allergy Unknown Verified 07/19/23 06:20 gluten AdvReac Unknown Verified 07/19/23 06:20 - Social History Does the pt smoke?: No Smoking Status: Never smoker Does the pt drink ETOH?: No Does the pt have substance abuse?: No - Immunizations Immunizations are current?: Yes - POLST Patient has POLST: No PD ED PE NORMAL - Vitals Vital signs reviewed: Yes - General General: Alert and oriented X 3, No acute distress, Well developed/nourished - HEENT HEENT: Moist mucous membranes - Neck Neck: Supple, no meningeal sign - Cardiac Cardiac: RRR, No murmur, No gallop, No rub - Respiratory Respiratory: No respiratory distress, Clear bilaterally - Abdomen Abdomen: Soft, Non tender - Extremities Extremities: No edema Results - Vitals Vitals: Oxygen O2 Source Room air - EKG (time done) No standard instances EKG releavant findings:: EKG personally interpreted by author of this note. Relevant findings are: Rate: Rate (enter#) (69) Rhythm: NSR [place]: Normal Intervals: Normal NM QRS: Normal Ischemia: Normal ST segments - Labs Labs: Laboratory Tests 07/19/23 07/19/23 06:18 06:18 WBC 10.2 RBC 4.87 Hgb 14.4 Hct 44.6 MCV 91.6 MCH 29.6 MCHC 32.3 RDW 12.4 Plt Count 356 MPV 10.0 Neut # (Auto) 5.2 Lymph # (Auto) 3.6 H [place] # (Auto) 0.8 Eos # (Auto) 0.5 Baso # (Auto) 0.1 Absolute Nucleated RBC 0.00 Nucleated RBC % 0.0 Sodium 135 Potassium 4.2 Chloride 102 Carbon Dioxide 25 Anion Gap 8.0 BUN 16 Creatinine 0.9 Estimated GFR (MDRD) 69 L Glucose 102 Calcium 9.7 Total Bilirubin 0.3 AST 16 ALT 25 Alkaline Phosphatase 70 Troponin I High Sens 2.4 Total Protein 7.9 Albumin 4.2 Globulin 3.7 Albumin/Globulin Ratio 1.1 Lipase 40 - Rads (name of study) chest xray Relevant Findings:: Prelim report reviewed, See rad report PD Medical Decision Making - ED course Complexity details: reviewed results, re-evaluated patient, considered differential, d/w patient ED course: No concerning nor diagnostic findings on ED testing including EKG, CXR, and blood tests. Normal hs-cTn. Normal CBC (except for insignificant/noncontributory elevated lymphocytes) and normal ER abdominal panel (except for insignificant/noncontributory GFR 69). Etiology of symptoms is not apparent at this time. Results d/w patient, return precautions reviewed, advised to follow up with PCP for reevaluation Departure - Departure Disposition: 01 Home, Self Care Clinical Impression: Chest pain Qualifiers: Chest pain type: unspecified Qualified Code(s): R07.9 - Chest pain, unspecified Condition: Good Instructions: ED Chest Pain Atypical Unkn Cause Comments: There were no concerning nor diagnostic findings on tonight's tests including the EKG, chest x-ray, and blood tests. The cause of your symptoms is not apparent at this time. Follow-up with your primary care provider, next available appointment, for reevaluation. Forms: PCP List Discharge Date/Time: 07/19/23 07:15
[2023-07-19 06:23] LABS: BASOPHILS # (AUTO) 0.1 10^3/uL (0.0-0.1); BASOPHILS % (AUTO) 0.9 %; EOSINOPHILS # (AUTO) 0.5 10^3/uL (0.0-0.7); EOSINOPHILS % (AUTO) 5.2 %; HCT - HEMATOCRIT 44.6 % (37.0-47.0); HGB - HEMOGLOBIN 14.4 g/dL (12.0-16.0); LYMPHOCYTES # (AUTO) 3.6 10^3/uL (1.5-3.5); LYMPHOCYTES % (AUTO) 34.9 %; MEAN CORPUSCULAR HEMOGLOBIN 29.6 pg (27.0-31.0); MEAN CORPUSCULAR HGB CONC 32.3 g/dL (32.0-36.0); MEAN CORPUSCULAR VOLUME 91.6 fL (81.0-99.0); MONOCYTES # (AUTO) 0.8 10^3/uL (0.0-1.0); MONOCYTES % (AUTO) 7.6 %; NEUTROPHILS # (AUTO) 5.2 10^3/uL (1.5-6.6); PLT - PLATELET COUNT 356 10^3/uL (130-450); RED BLOOD COUNT 4.87 10^6/uL (4.20-5.40); RED CELL DISTRIBUTION WIDTH 12.4 % (12.0-15.0); WHITE BLOOD COUNT 10.2 x10^3/uL (4.8-10.8)
[2023-07-19 06:37] LABS: ALBUMIN 4.2 g/dL (3.2-5.5); ALBUMIN/GLOBULIN RATIO 1.1 (1.0-2.2); BILIRUBIN,TOTAL 0.3 mg/dL (0.2-1.0); CALCIUM 9.7 mg/dL (8.5-10.3); CREATININE 0.9 mg/dL (0.6-1.3); POTASSIUM 4.2 mmol/L (3.5-4.5); TOTAL PROTEIN 7.9 g/dL (6.4-8.9)
[2023-07-19 06:45] LABS: TROPONIN I HIGH SENSITIVITY 2.4 ng/L (2.3-14.8)
[2023-07-19 07:23] VITALS: BP 121/96; O2SAT 100
--- NOTE | 2023-07-19 08:17 | XRAY Report ---
PROCEDURE: Chest 2V INDICATIONS: chest pain TECHNIQUE: 2 views of the chest were acquired. COMPARISON: None. FINDINGS: Surgical changes and devices: None. Lungs and pleura: No pleural effusions or pneumothorax. Lungs are clear. Mediastinum: Mediastinal contours appear normal. Heart size is normal. Bones and chest wall: No suspicious bony lesions. Overlying soft tissues appear unremarkable. IMPRESSION: No acute cardiopulmonary process. Findings are concordant with preliminary interpretation provided by [facility]. Reviewed by: Ron Whitaker MD on 07/19/2023 8:15 AM PDT Approved by: Ron Whitaker MD on 07/19/2023 8:15 AM PDT Station ID: [id number]
== END 2023-07-19 07:15 | disposition home or self-care (01) ==
LOC: ED 05:34
DX: R07.9 Chest pain, unspecified (principal); R06.00 Dyspnea, unspecified; I10 Essential (primary) hypertension
CPT/HCPCS: 36415; 80053; 83690; 84484; 85025; 93005; 99284